=== PATIENT | female | born 1975 | race Caucasian/White ===

== ENCOUNTER 2018-12-10 00:35 | Emergency (ER) | payer OTHER ==
[~2018-12-10] VITALS: Ht 162.6 cm; Wt 69.2 kg
[2018-12-10 00:45] VITALS: Ht 162.6 cm; Wt 69.2 kg
[2018-12-10 02:55] VITALS: BP 118/59
== END 2018-12-10 02:55 | disposition left against medical advice (07) ==
LOC: ED 00:35
DX: Z53.21 Procedure and treatment not carried out due to patient leaving prior to being seen by health care provider (principal)

== ENCOUNTER 2019-07-24 00:16 | Emergency (ER) | payer MEDICAID ==
[~2019-07-24] VITALS: Ht 160 cm; Wt 69.9 kg
[2019-07-24 00:29] VITALS: Ht 160 cm; Wt 69.9 kg
[2019-07-24 02:03] VITALS: BP 130/74
== END 2019-07-24 02:03 | disposition home or self-care (01) ==
LOC: ED 00:16
DX: K02.9 Dental caries, unspecified (principal)

== ENCOUNTER 2019-12-29 23:35 | Emergency (ER) | payer SELFPAY ==
[~2019-12-29] VITALS: Ht 162.6 cm; Wt 72.6 kg
[2019-12-29 23:43] VITALS: Ht 162.6 cm; Wt 72.6 kg
[2019-12-30 01:42] VITALS: BP 118/83
== END 2019-12-30 01:42 | disposition home or self-care (01) ==
LOC: ED 23:35
DX: M54.32 Sciatica, left side (principal)
CPT/HCPCS: J1885; Q0092